=== PATIENT | male | born 1985 | race Caucasian/White ===

== ENCOUNTER 2024-12-18 03:05 | Emergency (ER) | payer SELFPAY ==
[2024-12-18] MEDS: Acetaminophen/HYDROcodone 325-10 MG Tab PO STA (03:44)
[2024-12-18] MEDS: Lidocaine 1% 10 ML MDV INJECT ONE (03:52)
== END 2024-12-18 04:48 | disposition home or self-care (01) ==
LOC: MW.ED 03:05
DX: S52.572A Other intraarticular fracture of lower end of left radius, initial encounter for closed fracture (principal); W19.XXXA Unspecified fall, initial encounter
CPT/HCPCS: 25605; 73100; 73110; 99283; A9270; J2003